=== PATIENT | female | born 1985 ===

== ENCOUNTER 2016-10-14 20:35 | Emergency (ER) | payer MEDICAID ==
[2016-10-14 20:36] VITALS: BMI 32.0
--- NOTE | 2016-10-14 21:02 | ED PDOC ---
Arrival/HPI - General Chief Complaint: Chest Pain Time Seen by Provider: 10/14/16 20:41 Historian: Patient - History of Present Illness Narrative History of Present Illness (Text): 10/14/16 20:45 31 year old female, whose past medical history includes migraines, presents to the emergency department complaining of left-sided chest pain, which began 2 days ago. Patient describes chest pain as intermittent. She reports associated left shoulder and back pain. Patient denies any shortness of breath, cough, abdominal pain, nausea, vomiting, or any other symptoms at this time. Time/Duration: < week (2 days ) Symptom Onset: Gradual Symptom Course: Unchanged Activities at Onset: Rest Context: Home Past Medical History - Provider Review Nursing Documentation Reviewed: Yes - Past History Past History: No Previous - Infectious Disease Hx of Infectious Diseases: None - Tetanus Immunization Tetanus Immunization: Unknown - Cardiac Hx Cardiac Disorders: No - Pulmonary Hx Respiratory Disorders: No - Neurological Hx Neurological Disorder: No - HEENT Hx HEENT Disorder: No - Renal Hx Renal Disorder: No - Endocrine/Metabolic Hx Endocrine Disorders: No - Hematological/Oncological Hx Blood Disorders: No - Integumentary Hx Dermatological Disorder: No - Musculoskeletal/Rheumatological Hx Musculoskeletal Disorders: No - Gastrointestinal Hx Gastrointestinal Disorders: No - Genitourinary/Gynecological Hx Genitourinary Disorders: No - Psychiatric Hx Psychophysiologic Disorder: Yes Hx Depression: Yes ( depression) Hx Substance Use: No - Past Surgical History Past Surgical History: No Previous - Anesthesia Hx Anesthesia: No Hx Anesthesia Reactions: No Hx Malignant Hyperthermia: No - Suicidal Assessment Feels Threatened In Home Enviroment: No Family/Social History - Physician Review Nursing Documentation Reviewed: Yes Family/Social History: Unknown Family HX Smoking Status: Never Smoked Hx Alcohol Use: No Hx Substance Use: No Hx Substance Use Treatment: No Allergies/Home Meds Allergies/Adverse Reactions: Allergies No Known Allergies Allergy (Verified 05/24/16 13:32) Home Medications: Home Meds Medication Instructions Recorded Confirmed No Known Home Med 10/14/16 10/14/16 Review of Systems - Physician Review All systems were reviewed & negative as marked: Yes - Review of Systems Respiratory: absent: SOB, Cough Cardiovascular: Chest Pain (+left-sided chest pain) Gastrointestinal: absent: Abdominal Pain, Nausea, Vomiting Musculoskeletal: Back Pain, Other (+left-sided shoulder pain ) Physical Exam Vital Signs Reviewed: Yes Vital Signs Temp Pulse Resp BP Pulse Ox 10/14/16 22:52 65 18 116/75 99 10/14/16 20:40 98.7 F 63 18 125/81 99 Temperature: Afebrile Blood Pressure: Normal Pulse: Regular Respiratory Rate: Normal Appearance: Positive for: Well-Appearing, Non-Toxic, Comfortable Pain Distress: None Mental Status: Positive for: Alert and Oriented X 3 - Systems Exam Head: Present: Atraumatic, Normocephalic Pupils: Present: PERRL Extroacular Muscles: Present: EOMI Conjunctiva: Present: Normal Mouth: Present: Moist Mucous Membranes Neck: Present: Normal Range of Motion Respiratory/Chest: Present: Clear to Auscultation, Good Air Exchange, Tender to Palpation (Left chest wall tendnerness to palpation). No: Respiratory Distress , Accessory Muscle Use Cardiovascular: Present: Regular Rate and Rhythm, Normal S1, S2. No: Murmurs Abdomen: Present: Normal Bowel Sounds. No: Tenderness, Distention, Peritoneal Signs Upper Extremity: Present: Normal Inspection. No: Cyanosis, Edema Lower Extremity: Present: Normal Inspection. No: Edema Neurological: Present: GCS=15, CN II-XII Intact, Speech Normal Skin: Present: Warm, Dry, Normal Color. No: Rashes Psychiatric: Present: Alert, Oriented x 3, Normal Insight, Normal Concentration Medical Decision Making ED Course and Treatment: 10/14/16 20:45 Impression: A 31 year old female with chest pain. Differential Diagnosis included but are not limited to: costochondritis vs. chest pain vs. pneumothorax Plan: -- EKG -- Labs -- Urinalysis -- Toradol -- Reassess and disposition Prior Visits: Notes and results from previous visits were reviewed. On 05/24/16 complaining of flu like symptoms and neck pain. Patients was discharged home same day. Progress Notes: EKG: Ordered, reviewed, and independently interpreted the EKG. Rate : 64 BPM Rhythm : NSR Interpretation : Sinus arrhythmia. No acute ischemia. Comparison : No acute change from previous EKG on 05/24/2016. Re-evaluation Time: 23:30 Reassessment Condition: Re-examined, Improved - Lab Interpretations Lab Results: 10/14/16 20:55 10/14/16 20:55 Lab Results 10/14/16 20:55: Urine Color Yellow, Urine Appearance Clear, Urine pH 6.0, Ur Specific Frederic >= 1.030, Urine Protein Negative, Urine Glucose (UA) Negative, Urine Ketones Negative, Urine Blood Moderate H, Urine Nitrate Negative, Urine Bilirubin Negative, Urine Urobilinogen 0.2, Ur Leukocyte Esterase Negative, Urine RBC 10 - 15, Urine WBC 1 - 3, Ur Epithelial Cells 6 - 8, Amorphous Sediment Few, Urine Bacteria Mod, Urine Other Uyeast, Urine HCG, Qual Negative 10/14/16 20:55: Sodium 140, Potassium 3.9, Chloride 105, Carbon Dioxide 26, Anion Gap 13, BUN 16, Creatinine 0.7, Est GFR ( Amer) > 60, Est GFR (Non- Af Amer) > 60, Random Glucose 87, Calcium 9.0, Magnesium 1.8, Total Bilirubin 0.4, AST 30, ALT 31, Alkaline Phosphatase 79, Lactate Dehydrogenase 403, Total Creatine Kinase 86, Troponin I < 0.01, Total Protein 7.6, Albumin 4.2, Globulin 3.4, Albumin/Globulin Ratio 1.2 10/14/16 20:55: WBC 9.9 D, RBC 4.04, Hgb 12.0, Hct 36.6, MCV 90.6, MCH 29.7, MCHC 32.8, RDW 13.2, Plt Count 282, MPV 11.0, Gran % 60.9, Lymph % (Auto) 31.7, [place] % (Auto) 5.5, Eos % (Auto) 1.8, Baso % (Auto) 0.1, Gran # 6.02, Lymph # 3.1 , [place] # 0.5, Eos # 0.2, Baso # 0.01 I have reviewed the lab results: Yes - EKG Interpretation Interpreted by ED Physician: Yes Type: 12 lead EKG - Medication Orders Current Medication Orders: Discontinued Medications Ketorolac Tromethamine (Toradol) 30 mg IVP ONCE ONE Stop: 10/14/16 21:18 Last Admin: 10/14/16 21:29 Dose: 30 mg Re-Assess: [place] Pain Assessment Document 10/14/16 22:29 RD (Rec: 10/14/16 23:32 RD [id number]) Pain Reassessment Is this a pain reassessment? Yes Sleep Is patient sleeping during reassessment? No Presence of Pain Presence of Pain No - Scribe Statement The provider has reviewed the documentation as recorded by the Scribe Marlene Stinson training under Shaina Montalvo All medical record entries made by the Scribe were at my direction and personally dictated by me. I have reviewed the chart and agree that the record accurately reflects my personal performance of the history, physical exam, medical decision making, and the department course for this patient. I have also personally directed, reviewed, and agree with the discharge instructions and disposition. Disposition/Present on Arrival - Present on Arrival Any Indicators Present on Arrival: No History of DVT/PE: No History of Uncontrolled Diabetes: No Urinary Catheter: No History of Decub. Ulcer: No History Surgical Site Infection Following: None - Disposition Have Diagnosis and Disposition been Completed?: Yes Diagnosis: Costochondral pain Disposition: HOME/ ROUTINE Disposition Time: 23:30 Condition: GOOD Discharge Instructions (ExitCare): Chest Pain (ED) Additional Instructions: advil as needed for pain Referrals: Boni Olvera APN [Primary Care Provider] - Follow up with primary
[2016-10-14 21:10] LABS: ADD MANUAL DIFF? NO
[2016-10-14 21:14] LABS: URINE BILIRUBIN NEGATIVE (NEGATIVE); URINE BLOOD MODERATE (NEGATIVE); URINE GLUCOSE (UA) NEGATIVE (NEGATIVE); URINE KETONE NEGATIVE (NEGATIVE); URINE LEUKOCYTE ESTERASE NEGATIVE Leu/uL (NEGATIVE); URINE PROTEIN NEGATIVE mg/dL (<30 mg/dL); URINE UROBILINOGEN 0.2 E.U./dL (<1 E.U./dL)
[2016-10-14 21:15] VITALS: RESP 18; TEMP 98.7; O2SAT 99
[2016-10-14 21:18] LABS: BASO # 0.01 K/mm3 (0.0-2.0); BASO % 0.1 % (0.0-3.0); EOS # 0.2 (0.0-0.7); EOS % 1.8 % (1.5-5.0); GRAN # 6.02 (1.4-6.5); GRAN % 60.9 % (50.0-68.0); HEMATOCRIT 36.6 % (36.0-48.0); LYMPH # 3.1 (1.2-3.4); LYMPH % 31.7 % (22.0-35.0); MEAN CELL VOLUME 90.6 fL (80.0-105.0); MEAN CORPUSCULAR HEMOGLOBIN 29.7 pg (25.0-35.0); MEAN CORPUSCULAR HGB CONC 32.8 g/dl (31.0-37.0); MONO # 0.5 (0.1-0.6); MONO % 5.5 % (1.0-6.0); PLATELET COUNT 282 10^3/uL (120.0-450.0); RED CELL DISTRIBUTION WIDTH 13.2 % (11.5-14.5); WHITE BLOOD COUNT 9.9 10^3/ul (4.5-11.0)
[2016-10-14 21:19] LABS: URINE APPEARANCE CLEAR (CLEAR); URINE COLOR YELLOW (YELLOW)
[2016-10-14 21:28] LABS: URINE AMORPHOUS SEDIMENT FEW; URINE BACTERIA MOD (NEG)
[2016-10-14 21:35] LABS: ALB/GLOB RATIO 1.2 (1.1-1.8); ALKALINE PHOSPHATASE 79 U/L (38-133); ALT/SGPT 31 U/L (7-56); AST/SGOT 30 U/L (15-39); BILIRUBIN,TOTAL 0.4 mg/dL (0.2-1.3); BLOOD UREA NITROGEN 16 mg/dL (7-21); CARBON DIOXIDE 26 mmol/L (21-33); CHLORIDE 105 mmol/L (98-107); GFR AFRICAN-AMERICAN > 60; GLUCOSE,RANDOM 87 mg/dL (70-110); MAGNESIUM 1.8 mg/dL (1.7-2.2); POTASSIUM 3.9 mmol/L (3.6-5.0); SODIUM 140 mmol/L (132-148); TOTAL PROTEIN 7.6 g/dL (5.8-8.3)
[2016-10-14 21:46] LABS: TROPONIN I < 0.01 ng/mL
[2016-10-14 22:53] VITALS: BP 116/75; PULSE 65
--- NOTE | 2016-10-15 14:25 | CARD ---
APPROVED REPORT EKG Measurement Heart [id number] ID [id number] <Conclusion> Normal sinus rhythm with sinus arrhythmia Normal ECG
== END 2016-10-14 23:36 | disposition home or self-care (01) ==
LOC: ED 20:35
DX: R07.1 Chest pain on breathing (principal)
CPT/HCPCS: 80053; 81001; 82550; 83615; 83735; 84484; 84703; 85025; 93005; 96374; 99284; J1885